=== PATIENT | female | born 2000 | race Two or more races ===

== ENCOUNTER 2021-10-27 10:07 | Emergency (ER) | payer MEDICAID, SELFPAY ==
[2021-10-27 10:48] VITALS: BP 103/28; PULSE 94; RESP 18; TEMP 36.8; O2SAT 100; BMI 29.9
[2021-10-27 11:08] LABS: IDNOW Serial# 9DD0AD1C; Strep A Nucleic Acid Negative (Negative)
[2021-10-27 11:13] LABS: COVID-19 Test Negative (Negative)
--- NOTE | 2021-10-27 11:43 | ED.URI ---
HPI - URI/Sore Throat General Chief Complaint: Upper Respiratory Symptoms Stated Complaint: sore throat Time Seen by Provider: 10/27/21 11:39 Source: patient Mode of arrival: ambulatory Limitations: no limitations History of Present Illness MD elicited complaint: sore throat Onset (ago): day(s) (2) Consistency: constant and progressively worsening Severity: mild Able to tolerate fluids by mouth: Yes Exacerbating factors: swallowing Relieving factors: nothing Associated symptoms: denies other symptoms Treatments prior to arrival: none Related Data Previous Rx's Medication Instructions Recorded amoxicillin 875 mg-potassium 1 tab PO BID 10 Days #20 tab 10/27/21 clavulanate 125 mg tablet (Augmentin) Allergies Allergy/AdvReac Type Severity Reaction Status Date / Time No Known Allergies Allergy Verified 10/27/21 11:52 Review of Systems Review of Systems: Constitutional : No Weight loss, No Fever, No Chills, No Night Sweats, No Fatigue, No Malaise ENT/Mouth : No Hearing loss, No Ear Pain, No Nasal Congestion, No Sinus Pain, No Hoarseness, + sore throat, No Rhinorrhea, No Swallowing Difficulty Eyes: No Eye Pain, No Swelling, No Redness, No Foreign Body, No Discharge, No Vision Changes Cardiovascular : No Chest Pain, No SOB, No Dyspnea on Exertion, No Orthopnea, No Edema, No Palpitations Respiratory : No Cough, No Sputum, No Wheezing, No Smoke Exposure, No Dyspnea Gastrointestinal : No Nausea, No Vomiting, No Diarrhea, No Constipation, No abdominal Pain, No Hematochezia, No Melena Genitourinary : no irregular bleeding, No Dysuria, No Urinary Frequency, No Hematuria, No Urinary Incontinence, No Urgency, No Flank Pain, No Urinary Flow Changes, No Hesitancy Musculoskeletal : No joint pain, No Myalgias, No Joint Swelling Skin : No Skin Lesions, No rash Neuro : No Weakness, No Numbness, No Paresthesias, No Loss of Consciousness, No Dizziness, No Headache Psych : No Anxiety/Panic, No Depression, No SI/HI/AH/VH, No Social Issues, Heme/Lymph: No Bruising, No Bleeding,No Lymphadenopathy Endocrine : No Polyuria, No Polydipsia, No Temperature Intolerance Yes all other systems are reviewed and are negative [facility] Past Medical History Attestation statement: The following information was validated with the patient. Social History Social History Advance Directives: No Advance Directives Information Provided: No Patient : No Physical Exam Vital Signs: Vital Signs: Last Vital Signs Temp 98.3 F 10/27/21 10:48 Pulse 94 10/27/21 10:48 Resp 18 10/27/21 10:48 BP 103/28 L 10/27/21 10:48 Pulse Ox 100 10/27/21 10:48 BMI result Body Mass Index 29.9 vital signs have been reviewed as normal and appeared to be correct. Blood pressure 103/28. Heart rate normal. Respiration rate normal. Temperature normal. Oxygen saturation normal. Appearance: Alert. Oriented X3. No acute distress. Head: Normal external exam. Normocephalic. Atraumatic. Eyes: PERRLA. EOMI. Conjunctiva and sclera normal. Eyelids normal. ENT: EAC normal. TM's Normal. Posterior pharynx mildly erythematous and tonsils enlarged although uvula is midline and patient is tolerating secretions well. Moist mucous membranes. No trismus noted. No drooling noted. No muffled voice noted. Neck: Normal inspection. Neck supple. FROM. No adenopathy. Thyroid Normal. No meningeal signs. No neck mass noted. CVS: Normal heart rate and rhythm. Heart sound normal. Pulses normal throughout. No murmurs/rales/gallops. Respiratory: No respiratory distress. Painless inspiration. Breath sounds normal. No wheezes/rales/rhonchi noted. Chest nontender. No accessory muscle usage noted or decreased air movement noted. No stridor noted. Back: Full range of motion noted. No rashes/lesion/induration/fluctuance or signs of infection noted. Skin: Skin warm and dry. Normal skin color. Normal skin turgor. No rashes/lesions/lacerations noted. Extremities: Extremities exhibit normal range of motion. Extremities nontender. Neuro: Oriented X 3. No motor deficit. No sensory deficit. Reflexes normal. Normal steady gait. No focal neuro deficits noted. Vascular: + radial pulses/+ 2 distal pedal pulses/+2 dorsalis pedis b/l. Normal cap refill. No cyanosis noted to upper extremity nails and lower extremity toes nails. Course Course Course Narrative: 21-year-old female presenting to the ED with complaints of a sore throat for the past 2 days. Denies recent travel or sick contacts. Denied any other symptoms. COVID swab negative. Rapid strep negative. Although on my exam patient appears to have bacterial pharyngitis. Therefore will DC home with antibiotics and symptomatic treatment instructions return if any new or worsening symptoms and to follow up with primary care provider. Patient understands agrees with this plan. MDM - URI/Sore Throat Medical Records Attestation: I reviewed the patient's medical records. Lab Data Attestation: I reviewed the patient's lab results. Labs: Lab Results 10/27/21 10/27/21 Range/Units 10:53 10:53 COVID-19 ([facility]) Negative (Negative) COVID-19 Clin Com See Note S. pyogenes GrpA REE Negative (Negative) Discharge Plan Discharge Clinical Impression: Acute bacterial pharyngitis Patient Disposition: Home, Self-Care Instructions: Pharyngitis (ED) Additional Instructions: Name: Sacha Bob Age/Sex: 21/F : 2000 Unit#: [id number] Attend Dr: Generic ED Physician Re10/27/21 Status: REG ER [facility] Disch: SPEC : [id number] MIKA: 10/27/21 STATUS: COMP REQ : [id number] RECD: 10/27/[address]: Generic ED Physician COMP: 10/27/21 ENTERED: 10/27/[address]: Physician,None ORDERED: COVID-19 ID NOW Test Result Flag Reference Site IDNOW Serial# [id number] COVID-19 NAAT Negative Negative COVID-19 Note See Note Results are for the identification of SARS-CoV2 RNA. The SARS-CoV2 RNA is generally detectable in respiratory samples during the acute phase of infection. Positive results are indicative of the presence of SARS-CoV-2 RNA; clinical correlation with patient history and other diagnostic information is necessary to determine patient infection status. Positive results do not rule out bacterial infection or co-infection with other viruses. Testing facilities within the [place] and its territories are required to report all positive results to the appropriate public health authorities. Negative results should be treated as presumptive and, if inconsistent with clinical signs and symptoms or necessary for patient management, should be tested with different authorized or cleared molecular tests. Negative results do not preclude SARS-CoV2 RNA infection and should not be used as the sole basis for patient management decisions. Negative results should be considered in the context of a patient's recent exposures, history and the presence of clinical signs and symptoms consistent with COVID-19. This test has been authorized by the FDA under an Emergency Use Authorization (EUA) for use by authorized laboratories. Testing performed on the [employer] NOW utilizing NAAT. Prescriptions: New amoxicillin-pot clavulanate [Augmentin] 875-125 mg tablet 1 tab PO BID 10 Days Qty: 20 RF: 0 Referrals: ED Physician,Generic [Emergency Provider] - 2 days (Your PCP) Stand Alone Forms: Work/School Release Print Language: Gibraltarian
== END 2021-10-27 11:59 | disposition home or self-care (01) ==
PROVIDERS: Emergency Provider Emergency Medicine
DX: J02.8 Acute pharyngitis due to other specified organisms (principal); Z20.822 Contact with and (suspected) exposure to COVID-19
CPT/HCPCS: 36415; 87635; 87651; 99283

== ENCOUNTER 2023-09-12 13:05 | Emergency (ER) | payer MEDICAID, SELFPAY ==
[2023-09-12 14:03] VITALS: BP 110/56; PULSE 74; RESP 16; TEMP 36.2; O2SAT 100; BMI 26.1
--- NOTE | 2023-09-12 16:26 | ED.SKABFB ---
HPI - Skin/Abscess/Foreign Bdy General Chief complaint: Skin/Abscess/Foreign Body Stated complaint: cyst Time Seen by Provider: 09/12/23 16:25 Source: patient and family (mother) Mode of arrival: ambulatory Limitations: no limitations History of Present Illness HPI narrative: 22-year-old female with no significant past medical history presents to the ED today a complaint of bump to the top of her buttocks x1 day. No drainage from the area. Reports the area is painful to the touch. Pain is exacerbated by sitting down and lying down. Rates pain intensity 6/10 currently. Has not taken anything for the pain at home. Reports having similar symptoms in the past however symptoms have always resolved on their own and has never required drainage or antibiotics. Denies fever, chills, dizziness, headache, neck pain, back pain, dysuria, numbness/tingling/weakness down LE. Denies hx of IVDU. Related Data Previous Rx's Medication Instructions Recorded amoxicillin 875 mg-potassium 1 tab PO BID 10 days #20 tabs 10/27/21 clavulanate 125 mg tablet (Augmentin) cephalexin 500 mg capsule 500 mg PO QID 7 days #28 caps 09/12/23 doxycycline hyclate 100 mg capsule 100 mg PO BID 7 days #14 caps 09/12/23 ketorolac 10 mg tablet 10 mg PO Q8H PRN pain (scale score 09/12/23 4-6) 5 days #15 tabs lidocaine 5 % topical patch 1 patch topical DAILY #15 ea 09/12/23 (Lidoderm) Allergies Allergy/AdvReac Type Severity Reaction Status Date / Time No Known Allergies Allergy Verified 08/22/23 14:30 Review of Systems Review of Systems: Constitutional: No fever, chills, fatigue, night sweats, weight changes ENT/Mouth: No ear pain, hearing loss, nasal congestion, sinus pain, rhinorrhea, sore throat Eyes: No eye pain, swelling, redness, vision changes, discharge Cardio: No chest pain, palpitations, RAMIREZ, orthopnea, peripheral edema Pulm: No SOB, cough, sputum, wheezing, dyspnea, hemoptysis GI: No nausea, vomiting, hematemesis, abdominal pain, diarrhea, constipation, hematochezia, melena : No irregular bleeding, dysuria, frequency, urgency, hesitancy, hematuria, flank pain, urinary flow changes, urinary incontinence or retention MSK: No back pain, neck pain, joint pain, myalgias, +buttock pain Skin: No lesions, rashes Neuro: No weakness, numbness, paresthesias, LOC, dizziness, headache All other systems reviewed and are negative. [facility] Past Medical History Attestation statement: The following information was validated with the patient. Source: old records reviewed and nursing notes reviewed Physical Exam Vital Signs: Vital Signs: Last Vital Signs Temp 97.1 F 09/12/23 14:03 Pulse 74 09/12/23 14:03 Resp 16 09/12/23 14:03 BP 110/56 L 09/12/23 14:03 Pulse Ox 100 09/12/23 14:03 O2 Del Method Room Air 09/12/23 14:03 BMI result Body Mass Index 26.1 Vital signs stable, afebrile Const: Other: + Patient lying on her stomach d/t buttock pain General: cooperative, no acute distress, alert and awake Nutritional Appearance: average body habitus Orientation/consciousness: patient oriented x3 Limitations: no limitations HEENT: Head: Yes normal to inspection Ears: hearing grossly normal bilaterally General nose exam: Normal external nose present Eyes: General: appearance normal, both eyes and all related structures Conjunctivae: conjunctivae normal Sclerae: sclerae normal Pupils: Equal, round and reactive pupils present Neck: Neck: Yes normal visual inspection and Yes no lymphadenopathy Resp: Effort & Inspection: normal respiratory effort Auscultation: clear to auscultation bilaterally Cardio: Rate: regular rate Rhythm: regular rhythm Peripheral pulses: radial pulses present, posterior tibial pulses present and dorsalis pedis present GI: Inspection: Yes normal to inspection Palpation (GI): Soft to palpation and nontender : General: Yes no CVA tenderness Back/Spine/Pelvis: Other: No midline spinous tenderness. No paraspinal muscle tenderness. No step-off deformity. + Quarter-sized area of induration overlying the gluteal cleft without overlying or surrounding erythema. Tender to palpation. No palpable warmth or fluctuance. No pointing. Back: no CVA tenderness Skin: General skin exam: no rashes or lesions noted Neuro: Other: Strength 5/5 intact throughout.? No saddle anesthesia.? Sensation intact to light touch.? Neurovascular intact distally.? General: patient oriented x3, gait normal and moves all extremities Cranial nerves: Yes CN's II-XII intact bilaterally and Yes Equal, round and reactive pupils present Extrem: General: Yes normal to inspection, Yes capillary refill normal and Yes no clubbing, cyanosis or edema Course Course Course Narrative: 1600-- Patient's presentation and exam consistent with pilonidal cyst. The area is indurated however there is no palpable fluctuance that would warrant incision and drainage. Exam is nonfocal and imaging is not warranted at this time as my suspicion for involvement of deeper structures is low and results would not impact management. My supervising JJ Garcia also evaluated patient and is in agreement. Management at this time includes pain control, antibiotics, and general surgery follow up for possible surgical drainage/ management. > Due to area of induration I will send both keflex and doxy to patient's pharmacy for broad spectrum coverage. Will also send toradol and lido patches to pharmacy for pain control. Provided patient with general surgery referral. Discussed strict return precautions. all questions answered at this time. Both patient and her mother are in agreement with plan. Patient stable for discharge. Medications Administered Discontinued Medications Generic Name Dose Route Start Last Admin Trade Name Freq PRN Reason Stop Dose Admin Ketorolac Tromethamine 30 mg 09/12/23 17:50 09/12/23 17:55 Ketorolac Tromethamine 30 Mg/Ml Vial IM 09/12/23 17:51 30 mg ONCE ONE Administration Lidocaine 1 patch 09/12/23 17:50 09/12/23 17:55 Lidocaine 4 % Patch Adh..Patch TRANSDERMA 09/12/23 17:51 1 patch ONCE ONE Administration Protocol Medical Decision Making Medical Decision Making [facility] Narrative: 22-year-old female with no significant past medical history presents to the ED today a complaint of bump to the top of her buttocks x1 day. Vital signs are stable, afebrile. Patient is nontoxic appearing, in NAD. Lying on her stomach d/t pain around tailbone. On exam there is a quarter-sized area of induration overlying the gluteal cleft without overlying or surrounding erythema. Tender to palpation. No palpable warmth or fluctuance. No pointing. There is no midline spinous tenderness or paraspinal mm tenderness. No step off deformity. NV intact distally. Clinical concern for pilonidal cyst, sebaceous cyst, folliculitis, furnucle, carbuncle, hidradenitis suppurativa. Unlikely abscess, fistula, epidural abscess. Plan at this time is pain control and re-eval. Imaging is not warranted at this time. Differential Diagnosis Differential Diagnoses: The differential diagnosis associated with the presentation includes As above. Admission/Observation Not indicated. External Record Review External record reviewed: Inpatient record Prescription Management I considered prescription management with: Pain Medication Chronic Conditions Patient?s care impacted by: Other (previous pilonidal cysts) Critical Care Time Critical Care Time Critical Care Time: No Discharge Plan Discharge Clinical Impression: Pilonidal cyst Patient Disposition: Home, Self-Care Instructions: Pilonidal Cyst (ED) Additional Instructions: You have a pilonidal cyst. Your cyst is not large enough to have it drained. Keflex and doxycycline are to antibiotics that have been sent to your pharmacy for you to take over the next 7 days to prevent infection. Do not stop taking his early or miss any doses as this may cause the infection to worsen or come back. You may also take Tylenol and ibuprofen as needed for pain. Follow-up with General surgery as this may warrant surgical drainage. You have been provided with a referral. Call them to make an appointment. They will not call you. If her symptoms persist or worsen please return to the emergency department. In the case of emergency call 911. Prescriptions: New doxycycline hyclate 100 mg capsule 100 mg PO BID 7 Days Qty: 14 0RF cephalexin 500 mg capsule 500 mg PO QID 7 Days Qty: 28 0RF ketorolac 10 mg tablet 10 mg PO Q8H PRN (Reason: pain (scale score 4-6)) 5 Days Qty: 15 0RF lidocaine [Lidoderm] 5 % adhesive patch,medicated 1 patch topical DAILY Qty: 15 0RF Rx Instructions: leave on most painful area for up to 12 hrs No Action amoxicillin-pot clavulanate [Augmentin] 875-125 mg tablet 1 tab PO BID 10 Days Qty: 20 0RF Referrals: Physician,Unknown J [Primary Care Provider] - Stand Alone Forms: Work/School Release Interventions: ED Discharge Assessment Last Done: 09/12/23 17:59 Discharge Date/Time: 09/12/23 17:59
[2023-09-12] MEDS: Ketorolac Tromethamine 30 MG/ML VIAL IM (17:55)
[2023-09-12] MEDS: Lidocaine 4 % Patch ADH..PATCH 1 PATCH TRANSDERMA (17:55)
--- NOTE | 2023-09-12 17:59 | PC.NURSE ---
pt medicated per provider order. pt provided w/ d/c paperwork.
== END 2023-09-12 17:59 | disposition home or self-care (01) ==
PROVIDERS: Emergency Provider Student in an Organized Health Care Education/Training Program
DX: L05.91 Pilonidal cyst without abscess (principal); Z79.899 Other long term (current) drug therapy
CPT/HCPCS: 96372; 99283; 99284; J1885

== ENCOUNTER 2023-09-14 08:59 | Outpatient (AMB) | payer MEDICAID, SELFPAY ==
--- NOTE | 2023-09-14 09:14 | A.OFFVIS_ITS ---
Intake Vital Signs 09/14/23 09:22 Height 5 ft 2 in Weight 143 lb BMI 26.2 BP 126/61 Blood Pressure Location Rt brachial Position Sitting Pulse 80 Intake Visit Reasons: Pilonidal cyst Intake Note: Patient is seen in office for ER follow up visit, following pilonidal cyst. Patient c/o: reports pain level 10/10, reports no discharge at this time. [employer] Required: No Accompanied by: Other Relationship Allergies No Known Allergies Allergy (Verified 09/14/23 09:23) Medication List - Last Reconciled 09/14/23 by Jesse Maloney MD amoxicillin-pot clavulanate 875-125 mg (Augmentin) 1 tab PO BID 10 days cephalexin 500 mg PO QID 7 days doxycycline hyclate 100 mg PO BID 7 days ketorolac 10 mg PO Q8H PRN 5 days lidocaine 5% (Lidoderm) 1 patch topical DAILY HPI Pilonidal cyst HPI Details 22-year-old female referred for a pilonidal cyst. She has had this on the area of the tailbone for over a year now. She says that this periodically get swollen and becomes tender and painful. She says she went to the ER 2 days ago because of a severe episode. She was referred to me. She was started on oral antibiotics and some pain medications. She does feel better today. She has never had any I&D done in the past. She says she smokes marijuana regularly. [facility] Medical History (Updated 09/14/23 @ 09:53 by Jesse Maloney MD) Sacrococcygeal pilonidal cyst Surgical History Hx of appendectomy Review of Systems Const Denies chills and Denies fever(s) Card Denies chest pain, Denies dyspnea and Denies dyspnea on exertion Resp Denies cough, Denies dyspnea and Denies dyspnea on exertion GI Denies hematochezia and Denies change in bowel habits Denies hematuria Musc Denies back pain and Denies limited range of motion Neuro Denies focal weakness and Denies convulsions Psych Denies depression and Denies mood swings Physical Exam Vital Signs: Last Vital Signs Pulse 80 09/14/23 09:22 BP 126/61 09/14/23 09:22 BMI result Body Mass Index 26.2 Const General: comfortable and no acute distress Orientation/consciousness: patient oriented x3 Neck Neck: Yes no lymphadenopathy Resp Auscultation: clear to auscultation bilaterally Cardio Rhythm: regular rhythm GI Palpation (GI): Soft to palpation, nontender and no guarding Back/Spine/Pelvis Other: Soft mass on the sacrococcygeal area a little to the left of the midline, about 2.5 cm in size, mildly tender, not fluctuant, with midline pits in the medial cleft, no obvious cellulitis Neuro General: patient oriented x3 Assessment & Plan Assessment & Plan (1) Sacrococcygeal pilonidal cyst: Code(s): L05.91 - Pilonidal cyst without abscess Plan: She has this pilonidal cyst on the sacrococcygeal area with periodic swelling and tenderness. She therefore wants this removed. I explained the technique of excision under anesthesia. I reviewed the risks including but not limited to bleeding, infections, poor healing, as well as the benefits and alternatives. I reviewed with her what to expect postoperatively She says she understands and wants to proceed. I also explained to her that if this develops an abscess, we may need to do an I and D prior to her surgery. Coding Level of Care Code New Pt Level 3 (72577) Diagnoses Sacrococcygeal pilonidal cyst L05.91
[2023-09-14 09:22] VITALS: BP 126/61; PULSE 80; BMI 26.2
== END 2023-09-14 09:51 | disposition home or self-care (01) ==
PROVIDERS: PCP Pediatrics Adolescent Medicine; Visit Provider Surgery
DX: L05.91 Pilonidal cyst without abscess (principal)
CPT/HCPCS: 99203

== ENCOUNTER → 2023-09-14 08:59 | Outpatient (BNVA) | payer MEDICAID, SELFPAY | PROVIDERS: PCP Pediatrics Adolescent Medicine; Visit Provider Surgery | DX: L05.91 Pilonidal cyst without abscess (principal) | CPT/HCPCS: 99202 ==

== ENCOUNTER 2023-09-16 09:43 | Day surgery (SDC) | payer MEDICAID, SELFPAY ==
--- NOTE | 2023-09-15 10:43 | HO.ANESPROP2 ---
Documented by User: Chelsea Padron NP 09/15/23 10:44 HPI - Anesthesia Eval Consult details Narrative: 22yo F for Excision Pilonidal Cyst (sacroccygeal area) PMFSH Active Problems Active Problems: All Active Problems (Updated 09/14/23 @ 09:53 by Jesse Maloney MD) Sacrococcygeal pilonidal cyst (Acute) Past Medical History Medical History (Updated 09/14/23 @ 09:53 by Jesse Maloney MD) Sacrococcygeal pilonidal cyst Surgical History Surgical History Hx of appendectomy Social History Social History Patient Tobacco Use Status: Never used Tobacco Are you DNR?: No Advance Directives: No Advance Directives Information Provided: Yes Nutrition Risks: No Nutritional Risk Patient : No Meds Allergies Allergy/AdvReac Type Severity Reaction Status Date / Time No Known Allergies Allergy Verified 09/14/23 09:23 Exam Exam Date and Time: September 15, 2023 104 Assessment and Plan Assessment Anesthesia Assessment: Chart Reviewed Documented by User: Fadi Stewart MD 09/16/23 14:21 PMFSH Past Medical History Medical History (Updated 09/14/23 @ 09:53 by Jesse Maloney MD) Sacrococcygeal pilonidal cyst Patient : No Family History Family history of problems with anesthesia: No Surgical History Surgical History Hx of appendectomy History of Problems with Anesthesia: No Social History Social History Patient Tobacco Use Status: Never used Tobacco Are you DNR?: No Advance Directives: No Advance Directives Information Provided: Yes Nutrition Risks: No Nutritional Risk Patient : No Meds Allergies Allergy/AdvReac Type Severity Reaction Status Date / Time No Known Allergies Allergy Verified 09/14/23 09:23 Exam Airway Mallampati Class: I TM Dist: >3cm Neck ROM: Full Loose/Missing/Broken Teeth: No Heart: ok Lungs: ok Assessment and Plan Assessment Anesthesia Assessment: Anesthesia Plan Discussed Final Anesthetic Review Family History of Problems with Anesthesia: No History of Problems with Anesthesia: No NPO: Yes ASA Class: I Final Preanesthetic Review: No Changes in Pt Med Stat, Meds/Allgs Chart Reviewed, Consent Obtained/Reviewed and Anes Risks/Benef Reviewed Patient Risk: Low Procedure Risk: Intermediate Anesthetic Plan Anesthetic Plan: GA and Agree w/ Assess. and Plan Disposition: Standard PACU
[2023-09-16 10:38] VITALS: BP 134/72; PULSE 80; RESP 20; TEMP 36.6; O2SAT 98; BMI 26.2
[2023-09-16 10:43] LABS: UPreg QC Valid YES
[2023-09-16 10:44] LABS: Urine Pregnancy NEGATIVE (NEGATIVE)
[2023-09-16] MEDS: Lactated Ringers 1,000 ML 100 ML IVCONT (12:15)
--- NOTE | 2023-09-16 14:55 | P.OP_ITS ---
Operative Note Operative Note Date of Service: 09/16/23 Narrative: Preop diagnosis: Pilonidal cyst, sacrococcygeal area Postop diagnosis: Pilonidal cyst with abscess, sacrococcygeal area Procedure:Excision of pilonidal cyst with abscess, sacrococcygeal area Surgeon: Jesse Maloney MD executive assistant to president: SANAZ Kaiser The patient is a 22-year-old female with note of a painful mass in the sacrococcygeal area consistent with a pilonidal cyst. She understood the technique of excision. She was aware of the risks, benefits, and alternatives. She was brought to the operating room. She was placed in prone position. The buttocks were retracted with wide tape laterally. The sacrococcygeal area was prepped and draped in The usual sterile fashion. I infiltrated the planned line of incision with lidocaine 1%. The area of induration was the left of the midline about a 6 cm in widest dimension I made an incision on the skin surrounding this using blade 15. This was carried down through the full-thickness of the skin subcutaneous fat. I included part of the gluteal cleft which appeared to have some midline pits. I carried down this incision to the thick subcutaneous layer a to the size entire indurated area. At some point, there was note of pus within this cyst so this was infected and contained abscess. I continued to excise in tired diseased skin and subcutaneous tissue. This was sent as a specimen. This included the very deep subcutaneous layer. The excised area was measured to be 8 cm in longest dimension and about 3.6 cm wide. I copiously irrigated. I cauterized oozing areas. Once hemostasis was confirmed, I reapposed deep subcutaneous layer with history of 3-0 interrupted sutures. Skin closure was achieved with nylon 3-0 interrupted sutures alternating with vertical mattress sutures. The area was infiltrated with Marcaine 0.5% for postop analgesia. Dressings were applied. The procedure was completed The patient tolerated procedure well. There were no immediate complications. Initial and final counts of sponges and instruments were correct. Estimated blood loss about 25 cc The patient was extubated without difficulty and transferred to the recovery room with stable vital signs.
[2023-09-16 15:14] VITALS: BP 99/47; PULSE 94; RESP 16; TEMP 36.7; O2SAT 100
[2023-09-16 15:19] VITALS: BP 103/61; PULSE 93; RESP 16; O2SAT 100
[2023-09-16 15:24] VITALS: BP 90/43; PULSE 85; RESP 16; O2SAT 99
[2023-09-16 15:29] VITALS: BP 91/45; PULSE 78; RESP 16; TEMP 37.1; O2SAT 100
[2023-09-16 15:44] VITALS: BP 90/43; PULSE 81; RESP 16; TEMP 37; O2SAT 99
== END 2023-09-16 16:15 | disposition home or self-care (01) ==
PROVIDERS: Nurse Practitioner; PCP Pediatrics Adolescent Medicine; Visit Provider Surgery
PROC: (CPT 11771; principal; 2023-09-16 11:50)
DX: L05.01 Pilonidal cyst with abscess (principal)
CPT/HCPCS: 11771; 81025; 88304; J0690; J1885; J2405; J2704; J2795; J3010

== ENCOUNTER → 2023-09-16 09:43 | Outpatient (BNV) | payer MEDICAID, SELFPAY | PROVIDERS: PCP Pediatrics Adolescent Medicine; Visit Provider Surgery | DX: L05.91 Pilonidal cyst without abscess (principal) | CPT/HCPCS: 11771 ==

== ENCOUNTER 2023-09-28 10:15 | Outpatient (AMB) | payer MEDICAID, SELFPAY ==
--- NOTE | 2023-09-28 10:20 | A.OFFVIS_ITS ---
Intake Vital Signs 09/28/23 10:25 Height 5 ft 2 in Weight 142 lb 4 oz BMI 26.0 BP 123/60 Blood Pressure Location Lt brachial Position Sitting Pulse 83 Intake Visit Reasons: S/P excision pilonidal cyst Intake Note: Patient is seen in office for post op assessment post excision of pilonidal cyst. 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 She tolerated procedure well. He currently denies significant complaints. PENDING SALE TO [facility] Medical History Sacrococcygeal pilonidal cyst Surgical History History of excision of pilonidal cyst (09/16/23) Hx of appendectomy Patient Tobacco Use Status: Never used Tobacco Review of Systems Const Denies chills and Denies fever(s) Card Denies chest pain, Denies dyspnea and Denies dyspnea on exertion Resp Denies cough, Denies dyspnea and Denies dyspnea on exertion GI Denies hematochezia and Denies change in bowel habits Denies hematuria Musc Denies back pain and Denies limited range of motion Neuro Denies focal weakness and Denies convulsions Psych Denies depression and Denies mood swings Physical Exam Const General: comfortable and no acute distress Resp Effort & Inspection: normal respiratory effort Back/Spine/Pelvis Other: Excision site healing well, sutures intact Assessment & Plan Assessment & Plan (1) Sacrococcygeal pilonidal cyst: Code(s): L05.91 - Pilonidal cyst without abscess Plan: Status post excision. Her incision is well healed. I removed all her sutures. I applied Steri-Strips. I explained to her continuing good wound care. She can otherwise follow up on a p.r.n. basis. Coding Level of Care Code Global (79284) Diagnoses Sacrococcygeal pilonidal cyst L05.91
[2023-09-28 10:25] VITALS: BP 123/60; PULSE 83; BMI 26.0
== END 2023-09-28 10:30 | disposition home or self-care (01) ==
PROVIDERS: PCP Pediatrics Adolescent Medicine; Visit Provider Surgery
DX: L05.91 Pilonidal cyst without abscess (principal)
CPT/HCPCS: 99024

== ENCOUNTER → 2023-09-28 10:15 | Outpatient (BNVA) | payer MEDICAID, SELFPAY | PROVIDERS: PCP Pediatrics Adolescent Medicine; Visit Provider Surgery ==